=== PATIENT | male | born 1940 | race Caucasian/White ===

== ENCOUNTER 2017-06-04 15:43 | Emergency (ER) | payer MEDICARE, OTHER ==
--- NOTE | ~2017-06-04 | CT71 ---
[facility]. [facility] A Service of [facility] RADIOLOGY TEXT RESULTS PATIENT: CARSON PISANO LOCATION: SED : 39 UNIT #: [id number] AGE: [address]: Suraj June MD SEX: M ORDER DR: [id number] [place] [id number] E MR#: [id number] Acc #: [id number] NAME: CARSON PISANO : 1940 SEX: M STUDY DATE/TIME: 06/04/2017 17:53 UNIT: SED ROOM: STUDY DESCRIPTION: CT Head Wo Contrast Attending Physician: Suraj June M.D. Ordering Physician: Suraj June M.D. Primary Care Physician: Damon Tillman M.D. MEDICAL IMAGING REPORT This report is preliminary unless electronic signature is present. EXAM CT head without IV contrast COMPARISON CT head without IV contrast on the same date at 04:54 p.m. INDICATION 76-year-old male with possible intracranial bleed versus artifact due to motion. Repeat imaging was indicated. TECHNIQUE This CT exam was performed with one or more of the following radiation dose reduction techniques: automatic exposure control, adjustment of mA and/or kV according to patient size, and iterative reconstruction. FINDINGS Unfortunately there is still motion through the area of interest and there is again demonstrated faint density at the medial aspect of the left temporal lobe. This could possibly represent calcification but an acute intracranial bleed cannot be excluded. There was a similar density seen in a similar location on the contralateral side also possibly representing calcification. Intracranial bleed cannot entirely be excluded. Right frontal subcutaneous hematoma is again noted with extension into the preseptal soft tissues on the right. Chronic appearing sinus disease is again seen as described on CT of earlier today. No evidence of acute fracture is seen on this exam. There are calcifications of the cavernous internal carotid arteries bilaterally. There is moderate cerebral and cerebellar volume loss. There are multifocal areas of white matter hypoattenuation seen bilaterally consistent with small vessel ischemic change of uncertain acuity given lack of comparisons. No convincing evidence of acute cortical ischemia. IMPRESSION [facility] A Service of [facility] RADIOLOGY TEXT RESULTS PATIENT: CARSON PISANO LOCATION: SED : 39 UNIT #: [id number] AGE: [address]: Suraj June MD SEX: M ORDER DR: 1. Unfortunately there is again motion through the area of concern and there is a persistent hyperdensity seen in this location at the medial aspect of the left temporal lobe and to a lesser extent and now better appreciated, there appears to be a density along the medial aspect of the right temporal lobe as well although much smaller. These findings could possibly reflect choroid plexus calcification although acute intracranial hemorrhage cannot be excluded- either subarachnoid blood or less likely intraparenchymal blood. Consider imaging followup to document stability in 24 hours depending on the patient's clinical picture. 2. Multifocal bilateral areas of white matter hypoattenuation in the setting of moderate cerebral and cerebellar volume loss. These represent areas of small vessel ischemia but are of uncertain acuity given lack of comparisons. Clinical correlation recommended. Dictated by... Tong Caldwell M.D. THIS IS AN ELECTRONICALLY VERIFIED REPORT Tong Caldwell M.D. at 06/07/2017 10:52 AM Boom TD: 06/05/2017 12:47 JOB #: [id number] MEDICAL IMAGING REPORT Page 1 of 1
--- NOTE | ~2017-06-04 | CT71 ---
[facility] A Service of [facility] RADIOLOGY TEXT RESULTS PATIENT: CARSON PISANO LOCATION: SED : 39 UNIT #: [id number] AGE: [address]: Suraj June MD SEX: M ORDER DR: [id number] [place] [id number] E MR#: [id number] Acc #: [id number] NAME: CARSON PISANO. : 1940 SEX: M STUDY DATE/TIME: 06/04/2017 16:54 UNIT: SED ROOM: STUDY DESCRIPTION: CT Head Wo Contrast Attending Physician: Suraj June M.D. Ordering Physician: Suraj June M.D. Primary Care Physician: Damon Tillman M.D. MEDICAL IMAGING REPORT This report is preliminary unless electronic signature is present. REVISED REPORT SEE ADDENDUM EXAM CT head without IV contrast COMPARISON None INDICATION 76-year-old male with right-sided periorbital headache after syncope and falling face down on the concrete today. TECHNIQUE This CT exam was performed with one or more of the following radiation dose reduction techniques: automatic exposure control, adjustment of mA and/or kV according to patient size, and iterative reconstruction. FINDINGS [employer] topogram demonstrates degenerative disc disease of the cervical spine with uncinate hypertrophy also seen at C3-C4. There is a moderate to large sized subcutaneous hematoma over the right frontal bone extending into the right preseptal soft tissues. No evidence of intraorbital extension. No radiopaque foreign body. The globes appear symmetric and intact. No evidence of acute fracture. There are mucous retention cysts versus polyps within the frontal sinus, sphenoid sinus and ethmoid air cells. No paranasal sinus air-fluid levels. Mastoid air cells and middle ears are well-aerated. There are calcifications in the cavernous internal carotid arteries bilaterally. There is moderate cerebral and cerebellar volume loss. No abnormal extraaxial fluid collection. No mass effect. Detailed evaluation of the brain is limited by nonstandard positioning in [facility] A Service of [facility] RADIOLOGY TEXT RESULTS PATIENT: CARSON PISANO LOCATION: [facility] [place] [facility] UNIT #: [id number] AGE: [address]: Suraj June MD SEX: M ORDER DR: the gantry as well as mild motion. There is an area of high right frontal white matter hypoattenuation of uncertain acuity most consistent with small vessel ischemic change. There is some symmetric periventricular hypoattenuation abutting the frontal horns in the white matter bilaterally. This is also consistent with small vessel ischemic change. In the posterior limb of the right internal capsule there is also focal hypoattenuation of uncertain acuity and also consistent with small vessel ischemic change. No convincing evidence of acute cortical ischemia. IMPRESSION 1. Large subcutaneous hematoma over the right frontal bone extending to the right preseptal soft tissues. No evidence of intraorbital extension. No evidence of acute fracture or injury to the right globe. 2. Moderate cerebral and cerebellar volume loss. There are multiple areas of white matter hypoattenuation consistent with small vessel ischemic change but these are of uncertain acuity given lack of comparisons. Clinical correlation recommended. No evidence of acute cortical ischemia. 3. Possibly reflecting artifact due to motion and volume averaging with the calvaria or dural calcification, there is a hyperdense area seen along the medial aspect of the left temporal lobe. Intraparenchymal hemorrhage or subarachnoid hemorrhage cannot entirely be excluded. Consider repeat CT imaging with better patient cooperation and ensuring lack of motion to better evaluate this finding as an acute very small intracranial hemorrhage cannot entirely be excluded. 1. Dictated by... Tong Caldwell M.D. THIS IS AN ELECTRONICALLY VERIFIED REPORT Tong Caldwell M.D. at 06/08/2017 2:28 PM Boom TD: 06/05/2017 12:30 JOB #: [id number] ADDENDUM Dr. June was notified of these findings and possible acute intracranial hemorrhage versus volume averaging and recommendations for repeat CT at 05:42 p.m. on June 04, 2017. He acknowledged receipt. Dictated by... Tong Caldwell M.D. [facility] A Service of [facility] RADIOLOGY TEXT RESULTS PATIENT: CARSON PISANO LOCATION: [facility] [place] : 39 UNIT #: [id number] AGE: [address]: Suraj June MD SEX: M ORDER DR: THIS IS AN ELECTRONICALLY VERIFIED REPORT Tong Caldwell M.D. at 06/11/2017 8:25 AM ADELSO/jaspreet TD: 06/05/2017 12:30 JOB #: [id number] MEDICAL IMAGING REPORT Page 1 of 1
--- NOTE | ~2017-06-04 | CT101 ---
[facility] A Service of [facility] RADIOLOGY TEXT RESULTS PATIENT: CARSON PISANO LOCATION: SED : 39 UNIT #: [id number] AGE: [address]: Suraj June MD SEX: M ORDER DR: [id number] [place] [id number] E MR#: [id number] Acc #: [id number] NAME: CARSON PISANO : 1940 SEX: M STUDY DATE/TIME: 06/04/2017 16:23 UNIT: SED ROOM: STUDY DESCRIPTION: CT Maxillofacial Area Wo Cont Attending Physician: Suraj June M.D. Ordering Physician: Suraj June M.D. Primary Care Physician: Damon Tillman M.D. MEDICAL IMAGING REPORT This report is preliminary unless electronic signature is present. EXAM CT facial bones without contrast. HISTORY Fell and hit face today. Right face and eye pain and bruising. TECHNIQUE This CT exam was performed with one or more of the following radiation dose reduction techniques: automatic exposure control, adjustment of mA and/or kV according to patient size, and iterative reconstruction. FINDINGS CT facial bones without contrast demonstrates superior right periorbital and anterior right frontal soft tissue contusion. No fracture. No paranasal sinus opacification or air-fluid level. Mild mucosal thickening in the ethmoid air cells bilaterally and in the left sphenoid sinus. Mild nasal septal deviation to the left. IMPRESSION 1. No acute fracture. 2. Soft tissue contusion over the superior right orbit and anterior right frontal scalp. Dictated by... Tonio Jones M.D. THIS IS AN ELECTRONICALLY VERIFIED REPORT Tonio Jones M.D. at 06/05/2017 2:27 PM DFL/jaspreet TD: 06/05/2017 12:27 JOB #: [id number] [facility] A Service of [facility] RADIOLOGY TEXT RESULTS PATIENT: CARSON PISANO LOCATION: SED : 39 UNIT #: [id number] AGE: [address]: Suraj June MD SEX: M ORDER DR: MEDICAL IMAGING REPORT Page 1 of 1
--- NOTE | ~2017-06-04 | EKG ---
PATIENT: CARSON PISANO UNIT #: [id number] Ventricular Rate: 92 BPM Atrial Rate: 46 BPM P-R Interval: 130 ms QRS Duration: 128 ms Q-T Interval: 376 ms QTC Calculation(Bezet): 464 ms Calculated R [place]: 74 degrees Calculated T [place]: -45 degrees Diagnosis Line: Marked sinus bradycardia with marked sinus Diagnosis Line: arrhythmia with Premature ventricular complexes or Diagnosis Line: Fusion complexes Diagnosis Line: Right bundle branch block with repolarization Diagnosis Line: abnormality Diagnosis Line: Abnormal ECG Diagnosis Line: No previous ECGs available Diagnosis Line: Confirmed by AUGUSTO FUENTES MD ([id number]) on 06/06/2017 Diagnosis Line: 7:33:37 PM INTERPRETING MD: GINA GAMBOA
--- NOTE | ~2017-06-04 | CT52 ---
[facility]. [facility] A Service of [facility] RADIOLOGY TEXT RESULTS PATIENT: CARSON PISANO LOCATION: SED : 39 UNIT #: [id number] AGE: [address]: Omar June MD SEX: M ORDER DR: [id number] [place] [id number] E MR#: [id number] #: [id number] NAME: CARSON PISANO : 1940 SEX: M STUDY DATE/TIME: 06/04/2017 16:24 UNIT: SED ROOM: STUDY DESCRIPTION: CT Cervical Spine Wo Cont Attending Physician: Omar June M.D. Ordering Physician: Omar June M.D. Primary Care Physician: Damon Tillman M.D. MEDICAL IMAGING REPORT This report is preliminary unless electronic signature is present. EXAM CT cervical spine. HISTORY Pain, fell today at 15:00 hours. Facial injuries, fell moving grass. Fell on concrete. Syncopal episode. Fell on face, neck pain, headache, dizzy, facial laceration right side eyebrow. The CT exam was performed with one or more of the following radiation dose reduction techniques: automatic exposure control, adjustment of mA and/or kV according to patient size, and iterative reconstruction. CT cervical spine performed. Bone and soft tissues windows reviewed. Sagittal coronal reconstructions performed. Visualized portions of brain show no acute abnormality. Mucosal thickening left sphenoid sinus. Nasopharyngeal, oropharyngeal, pharyngeal mucosal, retropharyngeal spaces larynx, subglottic airway superior mediastinum, lung apices, thyroid, submandibular parotid glands show no acute abnormality. No adenopathy. Carotid bifurcation calcifications. There is no clear indication of traumatic soft tissue abnormalities in the paraspinal soft tissues. Cervical spine alignment normal. Vertebral body heights normal. Marked narrowing C3-C4 intervertebral disc space. Moderate to marked narrowing C4-C5, C5-C6 disc spaces. Multilevel facet degenerative changes. C2-C3: Small posterior central disc bulge. Mild mass effect on thecal sac. Minimal central spinal canal narrowing. Facet and uncovertebral joint degenerative change left greater than right. No evidence of exiting nerve impingement. C3-C4: Posterior disc osteophyte complex. Mild central spinal canal narrowing. Probable anterior cord contact. Uncovertebral degenerative STS. [facility] A Service of [facility] RADIOLOGY TEXT RESULTS PATIENT: CARSON PISANO LOCATION: [facility] [place] : 39 UNIT #: [id number] AGE: [address]: Omar June MD SEX: M ORDER DR: change bilaterally. Marked bilateral foraminal narrowing. Bilateral exiting nerve irritation or omar impingement is a consideration. C4-C5: Posterior disc osteophyte complex. Narrowing anterior thecal space. No definite cord contact. Mild central spinal canal narrowing. Uncovertebral and facet degenerative changes. Narrowing bilateral neural foramina. Bilateral exiting nerve irritation is possible. C5-C6: No significant disc bulge or herniation. Spinal canal diameter within normal limits. The neural foramina show mild narrowing due to facet and uncovertebral degenerative change. C6-C7, C7-T1, T1-T2, T2-T3: No disc bulge or herniation. Spinal canal diameter within normal limits. Neural foramina are patent without evidence of exiting nerve impingement. IMPRESSION 1. No traumatic fracture or malalignment. 2. Multilevel degenerative changes in the cervical spine. See [id number] description in body of report above. 3. Carotid bifurcation calcifications. Correlate clinically. Consider elective carotid ultrasound for further assessment. 4. No paraspinal soft tissue traumatic abnormality seen. Dictated by... Spencer Gramajo M.D. THIS IS AN ELECTRONICALLY VERIFIED REPORT Spencer Gramajo M.D. at 06/05/2017 4:57 PM NICKOLAS/gerardo TD: 06/05/2017 12:37 JOB #: [id number] MEDICAL IMAGING REPORT Page 1 of 1
--- NOTE | ~2017-06-04 | EKG ---
PATIENT: CARSON PISANO UNIT #: [id number] Ventricular Rate: 73 BPM Atrial Rate: 73 BPM P-R Interval: 152 ms QRS Duration: 132 ms Q-T Interval: 432 ms QTC Calculation(Bezet): 475 ms P [place]: 47 degrees Calculated R [place]: -30 degrees Calculated T [place]: 0 degrees Diagnosis Line: Normal sinus rhythm Diagnosis Line: Left axis deviation Diagnosis Line: Right bundle branch block with repolarization Diagnosis Line: abnormality Baseline wander Diagnosis Line: Abnormal ECG Diagnosis Line: When compared with ECG of 04-JUN-2017 16:02, Diagnosis Line: (unconfirmed) Diagnosis Line: Fusion complexes are no longer Present Diagnosis Line: Premature ventricular complexes are no longer Diagnosis Line: Present Diagnosis Line: QRS axis Shifted left Diagnosis Line: T wave inversion less evident in Inferior leads Diagnosis Line: T wave inversion no longer evident in Anterior Diagnosis Line: leads Diagnosis Line: Confirmed by AUGUSTO FUENTES MD ([id number]) on 06/06/2017 Diagnosis Line: 7:33:51 PM INTERPRETING MD: GINA GAMBOA
[~2017-06-04 15:43] MED LIST: ASPIRIN PO; ASPIRIN81 M1 PO; CERTAGEN PO; FISH OIL 1,0001 CAP PO; JANUVIA PO; LIPITOR PO; LISINOPRIL20 MG PO; METFORMIN PO; VITAMIN D1000 UNI1 PO; VYTORIN 10/40 T1 TAB PO; ZOCOR PO; ZYLOPRIM PO
[2017-06-04] MEDS ORDERED: ZESTORETIC 20-1 EAC1 (15:53)
[2017-06-04 16:57] LABS: BASOPHIL% 0.3 % (0-2.5); EOSINOPHIL# 0.1 X10e3 (0-0.7); EOSINOPHIL% 0.9 % (0.0-7.0); HEMATOCRIT 40.3 % (38.0-50.0); LYMPHOCYTE# 1.8 X10e3 (1.0-3.5); LYMPHOCYTE% 19.3 % (17.0-45.0); MEAN CELL VOLUME 93.4 FL (83-96); MEAN CORPUSCULAR HEMOGLOBIN 32.4 PG (28-34); MEAN CORPUSCULAR HGB CONC 34.7 g/dL (30-36); MEAN PLATELET VOLUME 7.8 FL (6.5-11.5); MONOCYTE# 0.6 X10e3 (0-1.0); NEUTROPHIL# 6.7 X10e3 (1.5-7.1); NEUTROPHIL% 72.5 % (40-75); PLATELET COUNT 234 X10e3 (140-420); RED BLOOD COUNT 4.32 X10e (3.90-5.60); RED CELL DISTRIBUTION WIDTH 13.4 % (11.0-15.5); WHITE BLOOD COUNT 9.2 X10e3 (4.0-10.5)
[2017-06-04 17:07] LABS: DIFF IND NO
[2017-06-04 17:08] LABS: POC - CKMB 1.9 ng/mL (0.0-7.9); POC - TROPONIN <0.05 ng/mL (<=0.05)
[2017-06-04 17:13] LABS: INR 1.1
[2017-06-04 17:20] LABS: PARTIAL THROMBOPLASTIN TIME 28.2 SECONDS (25.6-38.1)
[2017-06-04 17:21] LABS: ALBUMIN SERUM 4.4 g/dL (3.5-5.0); BILIRUBIN, DIRECT 0.1 mg/dL (0.0-0.2); BILIRUBIN,INDIRECT 0.5 mg/dL (0.0-0.9); BILIRUBIN,TOTAL 0.6 mg/dL (0.2-2.0); BUN/CREATININE RATIO 13.33; CALCIUM SERUM 8.8 mg/dL (8.4-10.2); CREATININE SERUM 0.9 mg/dL (0.6-1.4); GLOM FILT RATE Estimated 82.1 mL/min (>60); MAGNESIUM 1.8 mg/dL (1.6-3.0); POTASSIUM 3.5 mmol/L (3.5-5.1); PROTEIN TOTAL SERUM 7.1 g/dL (6.0-8.3)
== END 2017-06-04 19:10 | disposition hospice, home (50) ==
LOC: SED 15:43
PROVIDERS: Emergency Medicine
DX: S06.6X0A Traumatic subarachnoid hemorrhage without loss of consciousness, initial encounter (principal); I10 Essential (primary) hypertension; W01.198A Fall on same level from slipping, tripping and stumbling with subsequent striking against other object, initial encounter; Y92.009 Unspecified place in unspecified non-institutional (private) residence as the place of occurrence of the external cause; Z23 Encounter for immunization
CPT/HCPCS: 36415; 70450; 70486; 72125; 80048; 80076; 82553; 83735; 83874; 84484; 85025; 85610; 85730; 90471; 90715; 93005; 96374; 96375; 99285; J1953; J2270; J2405